=== PATIENT | male | born 1950 | race Caucasian/White ===

== ENCOUNTER 2020-07-11 09:06 | Emergency (ER) | payer OTHER ==
[~2020-07-11] VITALS: Ht 175.3 cm; Wt 68.0 kg
[2020-07-11] MEDS ORDERED: MULTI-VITAMIN1 EAC2 PO (10:07)
[2020-07-11] MEDS ORDERED: Aspir 8181 MG PO (10:07)
[2020-07-11] MEDS ORDERED: ACET500 PO (10:08)
[2020-07-11] MEDS ORDERED: THERA-D2000 UNIT (10:08)
[2020-07-11] MEDS ORDERED: NAPR500 PO (10:08)
[2020-07-11] MEDS ORDERED: BENADRYL25 MG PO (10:25)
[2020-07-11] MEDS ORDERED: PRED20 PO (10:25)
[2020-07-11] MEDS ORDERED: CLIN150 PO (10:25)
== END 2020-07-11 10:50 | disposition home or self-care (01) ==
LOC: ER 09:06
DX: L03.213 Periorbital cellulitis (principal); S00.262A Insect bite (nonvenomous) of left eyelid and periocular area, initial encounter; Z79.82 Long term (current) use of aspirin; Z79.899 Other long term (current) drug therapy; Z88.0 Allergy status to penicillin; Z88.1 Allergy status to other antibiotic agents; W57.XXXA Bitten or stung by nonvenomous insect and other nonvenomous arthropods, initial encounter
CPT/HCPCS: 99282